=== PATIENT | male | born 1980 | race Two or more races ===

== ENCOUNTER 2018-07-01 08:00 | Outpatient (CLI) | payer OTHER ==
[2018-07-01 19:06] LABS: BASOPHILS # (AUTO) 0.1 10^3/uL (0.0-0.1); BASOPHILS % (AUTO) 0.9 %; EOSINOPHILS # (AUTO) 0.1 10^3/uL (0.0-0.7); EOSINOPHILS % (AUTO) 0.8 %; HGB - HEMOGLOBIN 14.9 g/dL (14.0-18.0); LYMPHOCYTES # (AUTO) 1.5 10^3/uL (1.5-3.5); LYMPHOCYTES % (AUTO) 23.3 %; MEAN CORPUSCULAR HEMOGLOBIN 31.4 pg (27.0-31.0); MEAN CORPUSCULAR VOLUME 92.2 fL (80.0-94.0); MEAN PLATELET VOLUME 9.2 fL (7.4-11.4); MONOCYTES # (AUTO) 0.7 10^3/uL (0.0-1.0); MONOCYTES % (AUTO) 11.5 %; NEUTROPHILS # (AUTO) 4.1 10^3/uL (1.5-6.6); NEUTROPHILS % (AUTO) 63.5 %; PLT - PLATELET COUNT 122 10^3/uL (130-450); RED BLOOD COUNT 4.75 10^6/uL (4.70-6.10); RED CELL DISTRIBUTION WIDTH 13.4 % (12.0-15.0); WHITE BLOOD COUNT 6.4 x10^3/uL (4.8-10.8)
[2018-07-01 19:26] LABS: ALBUMIN 4.2 g/dL (3.2-5.5); ALBUMIN/GLOBULIN RATIO 1.4 (1.0-2.2); BILIRUBIN,TOTAL 1.4 mg/dL (0.2-1.0); CALCIUM 8.8 mg/dL (8.5-10.3); CREATININE 0.6 mg/dL (0.6-1.2); TOTAL PROTEIN 7.3 g/dL (6.7-8.2)
[2018-07-01 19:31] LABS: HB2 TOTAL 15.6 g/dL; HEMOGLOBIN A1C 0.55 g/dL; HEMOGLOBIN A1C % 5.4 % (4.6-6.2)
== END 2018-07-01 08:01 | disposition home or self-care (01) ==
LOC: LAB.WCP 08:00
PROVIDERS: ATTEND Physician Assistant
DX: R94.5 Abnormal results of liver function studies (principal); Z00.00 Encounter for general adult medical examination without abnormal findings
CPT/HCPCS: 36415; 80053; 83036; 85025

== ENCOUNTER 2018-07-26 09:07 | Outpatient (CLI) | payer OTHER ==
--- NOTE | 2018-07-26 12:04 | Ultrasound Report ---
Reason: ABDOMINAL PAIN, ELEVATED LIVER FUNCTION TEST Procedure Date: 07/26/2018 Accession Number: [id number] / [id number] Procedure: US - Abdomen Complete CPT Code: FULL RESULT: EXAM: ABDOMEN ULTRASOUND EXAM DATE: 07/26/2018 10:37 AM. CLINICAL HISTORY: ABDOMINAL PAIN, ELEVATED LIVER FUNCTION TEST. COMPARISON: None. TECHNIQUE: Real-time scanning was performed with static images obtained. FINDINGS: Limited exam due to patient body habitus. Liver: Increased echogenicity 15.6 cm. Main portal vein flow: Hepatopetal. Simple cyst in the right lobe measuring 7 x 8 x 6 mm. Gallbladder: Normal. No stones, wall thickening, or sonographic Mckeon's sign. Biliary System: Common bile duct measures 4.2 mm. No intrahepatic or extrahepatic ductal dilatation. Pancreas: Visualized portion is unremarkable. Nonvisualization of the distal body and tail due to obscuration by bowel gas. Kidneys: Right: 11 cm longitudinally. Normal. No contour-deforming mass, stones, or hydronephrosis. Left: 12.6 cm longitudinally. Normal. No stones or hydronephrosis. There is an echogenic mass within the kidney measuring 15 x 16 x 16 mm. There may be vascular flow within this. Spleen: 10.94 cm. Normal in size and echotexture. Aorta and Inferior Vena Cava: Midportion of the aorta is not well seen due to obscuration by bowel gas. Remainder of the aorta is normal. Limited visualization of the IVC due to obscuration by bowel gas. Other: None. IMPRESSION: 1. Echogenic mass within the left kidney measuring 16 mm. 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 Confirmation with MRI can be performed at clinical discretion. Otherwise, follow-up ultrasound can also be performed. 2. Normal appearance of the liver and gallbladder. 3. Portions of the pancreas, aorta, and IVC are not well seen due to obscuration by bowel gas and body habitus. ZACHARIAHA The above findings were discussed with Dr. Carrasco by Dr. Diya Roger at 12:02 hrs on 07/26/18.
== END 2018-07-26 09:08 | disposition home or self-care (01) ==
LOC: DI 09:07
PROVIDERS: ATTEND Physician Assistant
DX: N28.89 Other specified disorders of kidney and ureter (principal); R10.11 Right upper quadrant pain; R94.5 Abnormal results of liver function studies
CPT/HCPCS: 76700